=== PATIENT | female | born 1955 | race Caucasian/White ===

== ENCOUNTER 2016-06-15 01:45 | Inpatient (IN) | payer OTHER ==
[~2016-06-15] VITALS: Ht 157.5 cm; Wt 54.5 kg
[2016-06-15] VITALS (28 sets, daily range): BP systolic 101–135; BP diastolic 58–104; PULSE 73–98; RESP 11–37; Ht 157.5 cm; Wt 54.5 kg
[2016-06-15] MEDS ORDERED: ASPI325T4 PO (13:23)
[2016-06-15] MEDS ORDERED: ATOR10TA65 PO (13:26)
[2016-06-15] MEDS ORDERED: METO-448 PO (13:26)
[2016-06-15] MEDS ORDERED: PANT40TA4 PO (13:26)
[2016-06-15] MEDS ORDERED: METO-429 PO (13:26)
[2016-06-15] MEDS ORDERED: UDMOM PO (13:30)
[2016-06-15] MEDS ORDERED: ONDA4TAB95 IV* (13:32)
[2016-06-15] MEDS ORDERED: ZOLP5TAB6 PO (13:32)
[2016-06-15] MEDS ORDERED: HEPARIN 1000 UNITS/ML 10 ML INJ ONE (13:58)
[2016-06-15] MEDS ORDERED: MIDAZOLAM 1 MG/ML 2 ML INJ ONE (13:59)
[2016-06-15] MEDS ORDERED: VERAPAMIL 5 MG INJ ONE (13:59)
[2016-06-15] MEDS ORDERED: NITROGLYCERIN (IC) 100 MCG/ML INJ ONE (13:59)
[2016-06-15] MEDS ORDERED: FENTAnyl 50 MCG/ML VIAL ONE (13:59)
[2016-06-15] MEDS ORDERED: BIVALIRUDIN 250MG /NS 50 ML 50 ML IVPB ONE (14:16)
[2016-06-15] MEDS ORDERED: TICAGRELOR 90 MG TABLET ONE (14:16)
[2016-06-15] MEDS ORDERED: IOHEXOL 350MG/ML 50 ML BTL ONE (14:23)
[2016-06-15] MEDS ORDERED: SOD CHLORIDE 0.9% 1,000 ML IV SCH (15:00)
[2016-06-15] MEDS ORDERED: morphine 2 MG INJ IV PRN (15:00)
--- NOTE | 2016-06-15 15:11 | OPR ---
Date/Time of Note Date/Time of Note DATE: 06/15/16 TIME: 15:02 Operative Report Free Text/Dictation Procedure Date: 06/15/2016 Procedures Performed: 1)Selective left and right coronary angiography. 2)Balloon angioplasty and stenting of the mid LAD with a Resolute 2.5 x 14 drug- eluting stent. Pre-operative Diagnosis:NSTEMI Post-operative Diagnosis:NSTEMI, s/p PCI Indications:60 yo F with no PMHx presenting with chest pain and trops up to 3.6. EF normal by echo. Cardiac cath to evaluate coronaries. Description of Procedure: After informed consent, the patient was brought to the cardiac catheterization lab. The procedure site was prepped and draped in usual manner. The patient was premedicated with versed 1 mg and fentanyl 25 mcg. 2 mL lidocaine was injected into the right wrist. Next using the posterior wall approach, the 6/5 comoran sheath was inserted into the right radial artery. Next using the JL3.0 and JR4, selective angiography of the left and right coronary arteries were obtained. The decision was made to proceed with PCI of the LAD. A 6 comoran JL3.5 guide was advanced and engaged into the left coronary artery. After appropriate anticoagulation and antiplatelets were given, the BMW angioplasty wire was advanced past the lesion. Another BMW was placed in the small diagonal branch. Next the 2.0 X 12 balloon was used to dilate the lesion times 1 at a maximum of 10 tee. Subsequently, the Resolute 2.5 x 14 stent was advanced to the lesion and deployed at 9 tee. The BMW wire was then removed from the diagonal. Next the stent was post dilated with the 2.75 X 8 noncompliant balloon times 2 at a maximum of 12 tee. Final angiography revealed CARLYLE 3 flow, no edge dissection, and appropriate stent expansion. Next all equipment was removed and hemostasis was achieved by TR band. Findings: Anatomy/Hemodynamics: Left main:no significant lesion LAD:mid 90% lesion Diagonal 1 very small ~1 mm vessel with ostial 95% at LAD lesion Circumflex:no significant lesion Obtuse marginal:no significant lesion RCA:no significant lesion PDA:no significant lesion PLV:no significant lesion LV was not entered. Contrast used:85 mL Fluoroscopy time: 7.8 min Medications used: Versed 1 Fentanyl 25 Radial cocktail (heparin 5000, NTG 200, verapamil 2.5) Ticagrelor 180mg ASA 325mg given this am at other hospital Equipment used: 6 comoran JL 3.5 guide BMW angioplasty wire x 2 2 x 12 balloon Resolute 2.5 x 14 drug eluting stent 2.75 x 8 noncompliant balloon Assessment: NSTEMI CAD s/p PCI of mid LAD with 2.5 x 14 drug eluting stent Plan: -admit for overnight observation -ASA 81mg -ticagrelor 90mg BID -lipitor 80mg -metoprolol 12.5mg BID as tolerated MILLY MORAN Jun 15, 2016 15:10
[2016-06-15] MEDS ORDERED: ZOLPIDEM 5 MG TAB PO PRN (17:30)
[2016-06-15] MEDS ORDERED: ONDANSETRON 4 MG TAB PO PRN (17:30)
[2016-06-15] MEDS ORDERED: METOPROLOL 50 MG TAB PO SCH (18:00)
--- NOTE | 2016-06-15 18:35 | HP ---
DATE OF ADMISSION: 06/15/2016 CHIEF COMPLAINT: Acute coronary syndrome, non-STEMI. HISTORY OF PRESENT ILLNESS: This is a 60-year-old female with a past medical history of dyslipidemi a who presented to [facility] on 06/14/2016 with complaints of upper chest pain. The betty lal's symptoms started around 7:00 a.m. when she had a normal bowel movement. Later, the patient h as experienced sudden midsternal chest pain, dull aching 7/10 in severity without radiation. The morro thapa experienced some nausea and shortness of breath. She denies any headaches, fevers, chills, na usea, vomiting. She presented to [facility] and was ruled in for non-STEMI and was trans ferred to [facility] where she underwent elective cardiac catheterization. The morro thapa was found to have stenosis of the LAD. She underwent PCI with a drug-eluting stent to the mid LAD and angioplasty. The patient had no interprocedural complications. Postoperatively, she is re covering without any acute issues. PAST MEDICAL HISTORY: History of dyslipidemia. PAST SURGICAL HISTORY: She has a history of cholecystectomy, appendectomy and tonsillectomy. FAMILY HISTORY: No family history of kidney or heart disease. SOCIAL HISTORY: Does not drink, smoke or do drugs. MEDICATIONS: Patient medications have been reviewed and reconciled. REVIEW OF SYSTEMS: A 14-point review of systems was conducted. Pertinent positives stated in HPI, otherwise negative. PHYSICAL EXAMINATION: VITAL SIGNS: Blood pressure 105/64, respirations 23, pulse 78. HEENT: Head is normocephalic. Pupils are reactive to light. NECK: Supple. HEART: Regular rate. LUNGS: Show diminished breath sounds at base. ABDOMEN: Soft, nontender to palpation without rebound or guarding. EXTREMITIES: Negative for clubbing, cyanosis, no edema. DERMATOLOGIC: No rashes. MUSCULOSKELETAL: No joint effusions. NEUROLOGIC: No change in exam. MEDICATIONS: The patient's medications have been reviewed. LABORATORY DATA: From 09/15/2015 showed sodium 140, potassium 3.9, chloride 102, bicarbonate 28, BU N is 14, creatinine 1.0. White count 4.9, hemoglobin 13.2, hematocrit 39 and platelet count 248. ASSESSMENT AND PLAN: This is a 52-year-old female who presents with: 1. Non-ST elevation myocardial infarction. The patient is status post cardiac catheterization with percutaneous coronary intervention to the left anterior descending. Plan at this point is to obser ve the patient in the intensive care unit. We will continue medical management with Brilinta, Lipit or, metoprolol and aspirin. We will follow up closely and monitor closely. Follow up with cardiolo gy for further recommendations. 2. History of dyslipidemia. Will check a lipid panel and continue statin therapy. 3. Gastrointestinal and deep venous thrombosis prophylaxis. The patient was placed on Pepcid and s equential leg squeezers. 4. History of irritable bowel syndrome. Continue to monitor. Please note I spent 25 minutes in naem-rf-nzda time with the patient, discussing code status. THE P ATIENT IS FULL CODE. Dictated By: CHILO PANDA/ERON Conf#: [id number] DID#: [id number]
[2016-06-15] MEDS ORDERED: ATORVASTATIN 10 MG TAB PO SCH (21:00)
[2016-06-15] MEDS ORDERED: METOPROLOL 25 MG TAB PO SCH (21:00)
[2016-06-15] MEDS ORDERED: ATORVASTATIN 80 MG TAB PO SCH (21:00)
[2016-06-15] MEDS ORDERED: MAGNESIUM HYDROXIDE 30ML CUP PO SCH (21:00)
[2016-06-15] MEDS: TICAGRELOR 90 MG TABLET PO SCH (21:29)
[2016-06-15] MEDS: METOPROLOL 25 MG TAB PO SCH (21:30)
[2016-06-16] VITALS (15 sets, daily range): BP systolic 93–118; BP diastolic 64–79; PULSE 69–84; RESP 14–20
[2016-06-16 05:08] LABS: ADD SCAN DIFF NO
[2016-06-16 05:13] LABS: BASOPHILS % 0.6 % (0.0-2.0); EOSINOPHILS # 0.2 10^3/ul (0.0-0.5); EOSINOPHILS % 2.9 % (0.0-7.0); HEMATOCRIT 35.6 % (37.0-47.0); HEMOGLOBIN 11.7 g/dl (12.0-16.0); LYMPHOCYTES # 1.6 10^3/ul (0.8-2.9); LYMPHOCYTES % 23.9 % (15.0-51.0); MEAN CORPUSCULAR HEMOGLOBIN 29.9 pg (29.0-33.0); MEAN CORPUSCULAR HGB CONC 32.9 g/dl (32.0-37.0); MEAN PLATELET VOLUME 10.9 fl (7.4-10.4); MONOCYTE # 0.7 10^3/ul (0.3-0.9); MONOCYTES % 11.1 % (0.0-11.0); NEUTROPHILS % 61.2 % (39.0-77.0); PLATELET COUNT 221 10^3/UL (140-415); RED BLOOD COUNT 3.91 10^6/ul (4.20-5.40); RED CELL DISTRIBUTION WIDTH 12.9 % (11.5-14.5); WHITE BLOOD COUNT 6.5 10^3/ul (4.8-10.8)
[2016-06-16 06:18] LABS: POTASSIUM 3.9 mmol/L (3.5-5.1)
[2016-06-16 06:20] LABS: CHOL/HDL RATIO 4.3 RATIO
[2016-06-16 06:21] LABS: CREATININE 0.69 mg/dl (0.44-1.00); PHOSPHORUS 2.8 mg/dl (2.5-4.9)
[2016-06-16 06:22] LABS: CALCIUM 8.4 mg/dl (8.4-10.2); MAGNESIUM 2.2 mg/dl (1.7-2.5)
[2016-06-16] MEDS ORDERED: PANTOPRAZOLE (EC) 40 MG TAB PO SCH (07:00)
[2016-06-16] MEDS ORDERED: ASPIRIN 325 MG TAB PO SCH (09:00)
[2016-06-16] MEDS ORDERED: MIDODRINE 5 MG TAB PO SCH (09:00)
[2016-06-16] MEDS ORDERED: ASPIRIN 81 MG TAB PO SCH (09:00)
[2016-06-16] MEDS: METOPROLOL 25 MG TAB PO SCH (09:00)
[2016-06-16] MEDS ORDERED: FAMOTIDINE 20 MG TAB PO SCH (09:00)
[2016-06-16] MEDS: TICAGRELOR 90 MG TABLET PO SCH (09:51)
--- NOTE | 2016-06-16 15:20 | DS ---
DATE OF ADMISSION: 06/15/2016 DATE OF DISCHARGE: 06/16/2016 HOSPITAL COURSE: This is a 60-year-old female with a past medical history of dyslipidemia, who pres ented to [facility] on 06/14/2016 with complaints of chest pain. The patient was ruled i n for a non-STEMI. She was medically managed and transferred to [facility], where she underwent elective cardiac catheterization and had PCI to the LAD. Following the procedure, th e patient was in the intensive care unit and has been clinically stable. She has had no postprocedu re complications; no chest pain; no vomiting; no shortness of breath. The patient currently at this time will be discharged home, where she will follow up with her primary care physician in 1 week's time; will follow up with Dr. Khan in 1 to 2 weeks' time. At the time of discharge, the patie nt is stable, in no acute distress. FINAL DIAGNOSES: 1. [id number] myocardial infarction, status post percutaneous coronary intervention to the le ft anterior descending. 2. Dyslipidemia. 3. History of irritable bowel syndrome. FINAL MEDICATIONS: Patient will be on: 1. Aspirin 81 mg daily. 2. Brilinta 90 mg p.o. b.i.d. 3. Lipitor 80 mg p.o. at bedtime. 4. Lopressor 12.5 mg p.o. b.i.d. At time of discharge, the patient is stable, in no acute distress. Please note I spent over 40 minutes of time preparing the patient's discharge. Dictated By: CHILO PANDA/ERON Conf#: [id number] DID#: [id number]
--- NOTE | 2016-06-17 14:55 | RADRPT ---
Vent Rate: 78 bpm RR Interval: 0 msec MS Interval: 134 msec QRS Duration: 90 msec QT Interval: 362 msec QTC Interval: 412 msec P-R-T [place]: 76 - 47 - 50 degrees Normal sinus rhythm Nonspecific T wave abnormality Abnormal ECG Electronically Signed By: Cuauhtemoc Zhang [id number]
== END 2016-06-16 13:00 | disposition home or self-care (01) | DRG 247 ==
LOC: CCL 01:45 → ICU 15:11
PROVIDERS: ADMIT Internal Medicine Interventional Cardiology; ATTEND Internal Medicine Interventional Cardiology
PROC: 027034Z Dilation of Coronary Artery, One Artery with Drug-eluting Intraluminal Device, Percutaneous Approach (ICD-10-PCS; principal; 2016-06-15 14:00)
PROC: B2111ZZ Fluoroscopy of Multiple Coronary Arteries using Low Osmolar Contrast (ICD-10-PCS; 2016-06-15 14:00)
DX: I21.4 Non-ST elevation (NSTEMI) myocardial infarction (principal); E78.5 Hyperlipidemia, unspecified; I25.10 Atherosclerotic heart disease of native coronary artery without angina pectoris
CPT/HCPCS: 80048; 80061; 83735; 84100; 85025; 87081; 93005; 93454; C1725; C1769; C1874; C1887; C9600; J0583; J1644; J2250; J3010; Q9967

== ENCOUNTER 2016-11-30 20:04 | Emergency (ER) | payer OTHER ==
[~2016-11-30] VITALS: Ht 157.5 cm; Wt 54.5 kg
[2016-11-30 20:25] VITALS: Ht 157.5 cm; Wt 54.5 kg
[2016-11-30 21:35] LABS: BASOPHILS % 0.4 % (0.0-2.0); EOSINOPHILS # 0.4 10^3/ul (0.0-0.5); EOSINOPHILS % 4.3 % (0.0-7.0); HEMATOCRIT 37.9 % (37.0-47.0); HEMOGLOBIN 12.2 g/dl (12.0-16.0); LYMPHOCYTES # 1.5 10^3/ul (0.8-2.9); MEAN CORPUSCULAR HEMOGLOBIN 29.7 pg (29.0-33.0); MEAN CORPUSCULAR HGB CONC 32.2 g/dl (32.0-37.0); MEAN CORPUSCULAR VOLUME 92.2 fl (82.0-101.0); MEAN PLATELET VOLUME 10.1 fl (7.4-10.4); MONOCYTE # 0.6 10^3/ul (0.3-0.9); MONOCYTES % 6.2 % (0.0-11.0); NEUTROPHILS % 72.9 % (39.0-77.0); PLATELET COUNT 268 10^3/UL (140-415); RED BLOOD COUNT 4.11 10^6/ul (4.20-5.40); RED CELL DISTRIBUTION WIDTH 13.4 % (11.5-14.5); WHITE BLOOD COUNT 9.4 10^3/ul (4.8-10.8)
[2016-11-30] MEDS ORDERED: TICA90TA PO (21:38)
[2016-11-30] MEDS ORDERED: RANI75TA13 PO (21:40)
[2016-11-30 21:46] LABS: ADD UMIC NO; UR ASCORBIC ACID NEGATIVE (NEGATIVE); UR BILIRUBIN (Dip) NEGATIVE (NEGATIVE); UR BLOOD (Dip) NEGATIVE (NEGATIVE); UR CLARITY CLEAR (CLEAR); UR COLOR YELLOW (YELLOW); UR GLUCOSE (Dip) NEGATIVE (NEGATIVE); UR KETONES (Dip) NEGATIVE (NEGATIVE); UR LEUKOCYTE ESTERASE (Dip) NEGATIVE Leu/ul (NEGATIVE); UR NITRITE (Dip) NEGATIVE (NEGATIVE); UR SPECIFIC GRAVITY (Dip) 1.011 (1.003-1.030); UR TOTAL PROTEIN (Dip) NEGATIVE (NEGATIVE); UR UROBILINOGEN (Dip) NEGATIVE (NEGATIVE)
[2016-11-30 21:56] LABS: ALANINE AMINOTRANSFERASE 41 IU/L (13-69); ALBUMIN 4.2 g/dl (3.3-4.9); ALBUMIN/GLOBULIN RATIO 1.31; ALKALINE PHOSPHATASE 87 IU/L (42-121); ANION GAP 10 (8-16); ASPARTATE AMINO TRANSFERASE 37 IU/L (15-46); BILIRUBIN,INDIRECT 0.2 mg/dl (0-1.1); BILIRUBIN,TOTAL 0.2 mg/dl (0.2-1.3); BLOOD UREA NITROGEN 12 mg/dl (7-20); CALCIUM 9.1 mg/dl (8.4-10.2); CARBON DIOXIDE 30 mmol/L (21-31); CHLORIDE 103 mmol/L (97-110); GLUCOSE 105 mg/dl (70-220); POTASSIUM 4.1 mmol/L (3.5-5.1); SODIUM 139 mmol/L (135-144); TOTAL PROTEIN 7.4 g/dl (6.1-8.1)
[2016-11-30] MEDS ORDERED: SOD CHLORIDE 0.9% 1,000 ML IV STA (22:01)
[2016-11-30] MEDS ORDERED: morphine 4 MG/ML VIAL IV STA (22:01)
[2016-11-30] MEDS ORDERED: ONDANSETRON 4 MG INJ IV STA (22:01)
[2016-11-30 22:06] LABS: TROPONIN-I < 0.012 ng/ml (0.00-0.12)
--- NOTE | 2016-11-30 23:18 | RADRPT ---
PROCEDURE: CT abdomen and pelvis without contrast. CLINICAL INDICATION: Mid abdominal pain. History of pancreatitis with stent placement. TECHNIQUE: CT of the abdomen and pelvis without contrast was performed on a multidetector high-reso lution CT scanner. Coronal and sagittal reformatted images were obtained from the axial source image s. Images were reviewed on a high-resolution PACS workstation. The total exam CTDI equals 7.53 mGy a nd the total exam DLP equals 337.81 mGy-cm. One or more of the following dose reduction techniques were used: - Automated exposure control. - Adjustment of the mA and/or kV according to patient size. - Use of iterative reconstruction technique. COMPARISON: None available. FINDINGS: Visualized lower thorax: There is scarring in the visualized right middle lobe and lingula and subs egmental atelectasis versus scarring in the left lower lobe. The visualized heart is unremarkable. Hepatobiliary system and spleen: The liver is grossly unremarkable. There is mild diffuse prominenc e of the biliary tree, likely related to reservoir effect given the surgical absence of the gallblad gallo. The spleen is grossly unremarkable. The pancreas is grossly unremarkable. Adrenal glands and genitourinary system: The adrenal glands are grossly unremarkable. There is no n ephrolithiasis or hydronephrosis. The urinary bladder is grossly unremarkable. The uterus and adnex a are grossly unremarkable. Gastrointestinal system: There are mildly distended air filled loops of small bowel in the left upp er quadrant and there are fecalized contents within multiple small bowel loops in the left lower светлана drant, which are mildly dilated measuring up to 2.7 cm in diameter. There is a large amount of stool throughout the colon. There is no bowel wall thickening or evidence of obstruction. The appendix is not identified, but there are no secondary findings of appendicitis. Peritoneum, vascular, and lymphatics: There is no free intraperitoneal air or free fluid. There is no mesenteric or retroperitoneal adenopathy. The aorta is nonaneurysmal. Musculoskeletal system and soft tissues: There are no concerning osseous lesions. The soft tissues are unremarkable. IMPRESSION: 1. Large amount of stool throughout the colon, consistent with constipation. 2. Nonspecific mildly distended air filled loops of small bowel in the left upper quadrant and mild ly distended small bowel loops in the left lower quadrant with fecalized contents, consistent with b owel stasis. No definitive evidence to suggest bowel obstruction. RPTAT: HLBP .Larry Daily MD, MD Date Time Electronically viewed and signed by .Larry Daily MD, MD on 11/30/2016 23:17 .P/
[2016-11-30 23:45] VITALS: BP 110/73; PULSE 76; RESP 16
--- NOTE | 2016-11-30 23:49 | ERD ---
ER Documentation Chief Complaint Date/Time DATE: 11/30/16 TIME: 23:48 Chief Complaint MID AP X1 HR. HX HEART ATTACK W/ STENT/ PANCREATITIS HPI 52-year-old female midabdominal pain for 1 hour. Pain is mild to moderate intensity and located epigastric region. Patient has a history of pancreatitis in the past. No fevers no chills. No other current complaints. ROS All systems reviewed and are negative except as per history of present illness. Medications Home Meds Reported Medications Ranitidine Hcl* (Zantac*) 75 Mg Tablet, 75 MG PO QAM, TAB 11/30/16 Ticagrelor* (Brilinta*) 90 Mg Tablet, 90 MG PO Q12, TAB 11/30/16 Allergies Allergies: Coded Allergies: No Known Allergy (Unverified , 11/30/16) PMhx/Soc History of Surgery: Yes (cholecystectomy 1999, stent 05/2016) Anesthesia Reaction: No Hx Neurological Disorder: No Hx Respiratory Disorders: No Hx Cardiac Disorders: Yes (NSTEMI) Hx Psychiatric Problems: No Hx Miscellaneous Medical Probl: Yes (pancreatitis, IBS, HLD) Hx Alcohol Use: No Hx Substance Use: No Hx Tobacco Use: Yes Smoking Status: Former smoker Physical Exam Vitals Vital Signs Date Time Temp Pulse Resp B/P Pulse Ox O2 Delivery O2 Flow Rate FiO2 11/30/16 21:30 58 16 101/71 100 Room Air 11/30/16 20:25 98.4 77 18 126/74 99 Physical Exam Const: [] Head: Atraumatic Eyes: Normal Conjunctiva ENT: Normal External Ears, Nose and Mouth. Neck: Full range of motion..~ No meningismus. Resp: Clear to auscultation bilaterally Cardio: Regular rate and rhythm, no murmurs Abd: Soft, non tender, non distended. Normal bowel sounds Skin: No petechiae or rashes Back: No midline or flank tenderness Ext: No cyanosis, or edema Neur: Awake and alert Psych: Normal Mood and Affect Result Diagram: 11/30/16211911/30/162119 Results 24 hrs Laboratory Tests Test 11/30/16 21:20 White Blood Count 9.410^3/ul Red Blood Count 4.1110^6/ul Hemoglobin 12.2g/dl Hematocrit 37.9% Mean Corpuscular Volume 92.2fl Mean Corpuscular Hemoglobin 29.7pg Mean Corpuscular Hemoglobin Concent 32.2g/dl Red Cell Distribution Width 13.4% Platelet Count 29535^3/UL Mean Platelet Volume 10.1fl Neutrophils % 72.9% Lymphocytes % 16.0% Monocytes % 6.2% Eosinophils % 4.3% Basophils % 0.4% Nucleated Red Blood Cells % 0.0/100WBC Neutrophils # (Manual) 6.910^3/ul Lymphocytes # 1.510^3/ul Monocytes # 0.610^3/ul Eosinophils # 0.410^3/ul Basophils # 0.010^3/ul Nucleated Red Blood Cells # 0.010^3/ul Urine Color YELLOW Urine Clarity CLEAR Urine pH 6.0 Urine Specific [place] 1.011 Urine Ketones NEGATIVEmg/dL Urine Nitrite NEGATIVEmg/dL Urine Bilirubin NEGATIVEmg/dL Urine Urobilinogen NEGATIVEmg/dL Urine Leukocyte Esterase NEGATIVELeu/ul Urine Hemoglobin NEGATIVEmg/dL Urine Glucose NEGATIVEmg/dL Urine Total Protein NEGATIVEmg/dl Sodium Level 139mmol/L Potassium Level 4.1mmol/L Chloride Level 103mmol/L Carbon Dioxide Level 30mmol/L Anion Gap 10 Blood Urea Nitrogen 12mg/dl Creatinine 0.70mg/dl Glucose Level 105mg/dl Calcium Level 9.1mg/dl Total Bilirubin 0.2mg/dl Direct Bilirubin 0.00mg/dl Indirect Bilirubin 0.2mg/dl Aspartate Amino Transf (AST/SGOT) 37IU/L Alanine Aminotransferase (ALT/SGPT) 41IU/L Alkaline Phosphatase 87IU/L Troponin I < 0.012ng/ml Total Protein 7.4g/dl Albumin 4.2g/dl Globulin 3.20g/dl Albumin/Globulin Ratio 1.31 Lipase 308U/L Current Medications Medications (Trade) Dose Ordered Sig/Hubert Route PRN Reason Start Time Stop Time Status Last Admin Dose Admin Sodium Chloride (NS) 1,000 ml @ 1,000 mls/hr Q1H STAT IV 11/30/16 22:01 11/30/16 23:00 DC 11/30/16 23:01 Morphine Sulfate (morphine) 4 mg ONCE STAT IV 11/30/16 22:01 11/30/16 22:03 DC Ondansetron HCl (Zofran Inj) 4 mg ONCE STAT IV 11/30/16 22:01 11/30/16 22:03 DC Procedures/MDM Medical decision-making: Very pleasant 52-year-old female comes with epigastric abdominal pain. She does have mild elevation in lipase, however not consistent with pancreatitis. CT does show severe stool burden. At this point likely secondary to constipation. Patient will be discharged home with Colace and Bentyl. Follow-up with 8 hours for serial abdominal exams here in the emergency department has been recommended as well. Follow-up with PCP otherwise. Departure Diagnosis: Primary Impression: Abdominal pain Abdominal location: unspecified location Qualified Code: R10.9 - Abdominal pain, unspecified abdominal location Condition: Stable BRENDA GRIFFITH Nov 30, 2016 23:49
[2016-11-30] MEDS ORDERED: DICY10CA60 PO (23:50)
[2016-11-30] MEDS ORDERED: DOCU-144 PO (23:50)
== END 2016-12-01 00:06 | disposition home or self-care (01) ==
LOC: E/R 20:04
DX: R10.13 Epigastric pain (principal); Z87.891 Personal history of nicotine dependence; Z98.61 Coronary angioplasty status
CPT/HCPCS: 36415; 74176; 80053; 81003; 83690; 84484; 85025; 93005; 99285; J7030